=== PATIENT | male | born 2000 | race African-American/Black ===

== ENCOUNTER 2023-12-22 15:40 | Emergency (ER) | payer OTHER, SELFPAY ==
[2023-12-22 15:42] VITALS: BP 159/102
--- NOTE | 2023-12-22 17:20 | ED.GENMED ---
History of Present Illness
General
Chief Complaint: Fall
Source: patient
Exam Limitations: none
Time Seen by Provider: 12/22/23 16:35
Nursing documentation reviewed up to this point in time: agreed with
History of Present Illness
History of Present Illness:
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 Denies numbness weakness head trauma loss of consciousness denies additional
concerns no chronic medical conditions not on blood thinners
Review of Systems
Review of Systems
Allergies reviewed?: Yes
All Other Systems: ROS reviewed and negative except as documented in HPI and ROS
Phy Exam
Physical Exam
Physical Exam:
GENERAL: Alert , in no apparent distress
EYE: pupils equal and reactive
NECK: Supple, no significant adenopathy.
ENT: o/p clr, mmm.
CARDIAC: Regular rate and rhythm .
LUNGS: Clear breath sounds bilaterally, no acute respiratory distress, no wheezes/rales/rhonchi
ABDOMEN: Soft, without focal tenderness, no r/g, no cvat
Back: No visible trauma to the back. No symptom tenderness to the right sided thoracic paraspinal muscles but no midline pain no redness or warmth good range of motion strength ambulating normally normal neurologic evaluation
NEUROLOGICAL: Alert and oriented, no focal neuro deficits
SKIN: Warm and dry, skin intact.
MUSCULOSKELETAL: No edema, well perfused.
PSYCH: Normal and appropriate interaction.
Course
Orders/Labs/Results
Orders:
Orders
12/22/23 15:47
CR Cervical Spine 4 Or 5 Vw Urgent
Comment:
Reason For Exam: fall
CR Thoracic Spine 3 Views Urgent
Comment:
Reason For Exam: fall
12/22/23 17:19
Acetaminophen [Tylenol] 1,000 mg PO NOW STA
Ibuprofen [Motrin] 600 mg PO NOW STA
Vital Signs
Initial and Last Documented VS:
Initial Vital Signs
Temp Pulse Resp BP Pulse Ox
98.4 F 72 17 159/102 100
12/22/23 15:42 12/22/23 15:42 12/22/23 15:42 12/22/23 15:42 12/22/23 15:42
Last Documented Vital Signs
Temp Pulse Resp BP Pulse Ox
98.4 F 72 17 159/102 100
12/22/23 15:42 12/22/23 15:42 12/22/23 15:42 12/22/23 15:42 12/22/23 15:42
MDM/Problems Addressed
MDM/Problems Addressed:
23-year-old male presenting to the emergency department today with concerns of a fall hitting his mid back earlier today. X-rays without evidence of fracture. Patient generally well-appearing in no acute distress no neurologic symptoms. Stable
for discharge return precautions given.
*Critical Care Note
Total Time (30-74mins, 75-104mins- exclusive of procedures): Not Applicable
ED Attending Note
-
Portions of this chart may have been created with voice recognition software.� Occasional wrong word or��sound alike� substitutions may have occurred due to the inherent limitations of voice recognition software.
Discharge Plan
Departure
Patient Disposition: Home (Routine Discharge)
Date of Disposition: 12/22/23
Time of Disposition: 17:21
Patient with high blood pressure during this ER visit?: No
Condition: Good
Covid-19: Not Applicable
Discharge Problem:
Back pain
Instructions: Contusion (DC)
Prescriptions:
New
cyclobenzaprine 10 mg tablet
10 mg PO HS PRN (Reason: muscle spasm) Qty: 7 0RF
ibuprofen 600 mg tablet
600 mg PO Q8H PRN (Reason: Pain) Qty: 10 0RF
Referrals:
NONE,* [Family Provider] -
Stand Alone Forms: Return to Work
Activity Restrictions/Additional Instructions:
You came to the emergency department today with concerns of a back injury. Please take the prescribed medications and appropriate rest. Return to the emergency department any worsening, new or concerning symptoms.
Interventions
Interventions:
*Risk Screen - Suicide Last Done: 12/22/23 15:42
*General Assessment Last Done: 12/22/23 15:42
*Neglect/Abuse Screening Last Done: 12/22/23 15:42
ED-Musculoskeletal Assessment Last Done: 12/22/23 16:39
ED- Neurological Assessment Last Done: 12/22/23 16:39
ED-Skin Assessment Last Done: 12/22/23 16:39
Discharge Date and Time
Print Language: SERBIAN
[2023-12-22] MEDS: MOTRIN 600 MG PO (17:33)
[2023-12-22] MEDS: TYLENOL 1000 MG PO (17:34)
[2023-12-22 17:39] VITALS: BP 138/79
[2023-12-22 17:40] VITALS: BP 138/79
== END 2023-12-22 17:41 | disposition home or self-care (01) ==
LOC: EMR 15:40
PROVIDERS: EMERGENCY PHYSICIAN Emergency Medicine
DX: M54.9 Dorsalgia, unspecified (principal); W01.0XXA Fall on same level from slipping, tripping and stumbling without subsequent striking against object, initial encounter; Y99.0 Civilian activity done for income or pay
CPT/HCPCS: 99283; 72050; 72072